=== PATIENT | female | born 1955 | race Caucasian/White ===

== ENCOUNTER 2017-02-16 09:50 | Outpatient (CLI) | payer BC ==
[~2017-02-16] VITALS: Ht 160 cm; Wt 79.4 kg
[2017-02-16] MEDS ORDERED: NS 1,000 ML IV ONE (10:00)
[2017-02-16] MEDS ORDERED: PROPOFOL 200 MG/20 ML VIAL As Ordered ONE (11:36)
[2017-02-16] MEDS ORDERED: LIDOCAINE 2% INJ 100 MG/5 ML SDV (FOR ANES.) As Ordered ONE (11:36)
--- NOTE | 2017-02-16 11:51 | ROOR ---
Patient Name: Lorraine Colmenares Procedure Date: 02/16/2017 11:33 AM Date of : 1955 Age: 61 Room: [facility] Gender: Female Note Status: Finalized Procedure: Upper Endoscopy + Biopsies Indications: Heartburn Providers: Baljeet Bender MD Referring MD: Carla Rojas DO Requesting Provider: Medicines: Monitored Anesthesia Care Complications: No immediate complications. Procedure: Pre-Anesthesia Assessment: - Prior to the procedure, a History and Physical was performed, and patient medications and allergies were reviewed. The risks and benefits of the procedure and the sedation options and risks were discussed with the patient. All questions were answered and informed consent was obtained. Patient identification and proposed procedure were verified [Verifying Personnel] [Verification]. [Mental Status Exam]. [Airway Exam]. [Respiratory Exam]. [CV Exam]. The patient [Abx Prophylaxis Requirement] prophylactic antibiotics [High Risk History Reason] and [High Risk Procedure Reason]. [Anticoagulant Agents] [Days Prior to Procedure]. [ASA Grade]. After reviewing the risks and benefits, the patient was deemed in satisfactory condition to undergo the procedure. [Anesthesia Plan]. Immediately prior to administration of medications, the patient was re-assessed for adequacy to receive sedatives. The heart rate, respiratory rate, oxygen saturations, blood pressure, adequacy of pulmonary ventilation, and response to care were monitored throughout the procedure. The physical status of the patient was re-assessed after the procedure. - The heart rate, respiratory rate, oxygen saturations, blood pressure, adequacy of pulmonary ventilation, and response to care were monitored throughout the procedure. The Endoscope was introduced through the mouth, and advanced to the second part of duodenum. The upper GI endoscopy was accomplished without difficulty. The patient tolerated the procedure well. Findings: The Z-line was regular and was found 38 cm from the incisors. Multiple biopsies were obtained with cold forceps for evaluation to rule out Lackey's Esophagus randomly at the gastroesophageal junction. A medium-sized hiatal hernia was present. No other significant abnormalities were identified in a careful examination of the stomach. The exam of the duodenum was otherwise normal. Impression: - Z-line regular, 38 cm from the incisors. - Medium-sized hiatal hernia. - Multiple biopsies were obtained at the gastroesophageal junction. - The examination was otherwise normal. Recommendation: - Patient has a contact number available for emergencies. The signs and symptoms of potential delayed complications were discussed with the patient. Return to normal activities tomorrow. Written discharge instructions were provided to the patient. - High fiber diet. - Discharge patient to home. - Continue present medications. - Await pathology results. - Telephone GI clinic for pathology results in 1 week. - Return to referring physician. - Check Portal Online for Path Results.([email or web address] - The findings and recommendations were discussed with the patient's family. Baljeet Bender MD Baljeet Bender MD 02/16/2017 11:51:28 AM This report has been signed electronically. Number of Addenda: 0 Note Initiated On: 02/16/2017 11:33 AM Estimated Blood Loss: Estimated blood loss: none.
--- NOTE | 2017-02-16 12:11 | ROOR ---
Patient Name: Lorraine Colmenares Procedure Date: 02/16/2017 11:34 AM Date of : 1955 Age: 61 Room: [facility] Gender: Female Note Status: Finalized Procedure: Total Colonoscopy to Cecum Indications: Colon cancer screening in patient at increased risk: Colorectal cancer in father, Last colonoscopy: 2008 Providers: Baljeet Bender MD Referring MD: Carla Rojas DO Requesting Provider: Medicines: Monitored Anesthesia Care Complications: No immediate complications. Procedure: Pre-Anesthesia Assessment: - The heart rate, respiratory rate, oxygen saturations, blood pressure, adequacy of pulmonary ventilation, and response to care were monitored throughout the procedure. The Colonoscope was introduced through the anus and advanced to the cecum, identified by appendiceal orifice and ileocecal valve. The colonoscopy was performed without difficulty. The patient tolerated the procedure well. The quality of the bowel preparation was excellent. Findings: The perianal and digital rectal examinations were normal. Non-bleeding internal hemorrhoids were found during retroflexion. The hemorrhoids were Grade I (internal hemorrhoids that do not prolapse). Scattered small-mouthed diverticula were found in the recto-sigmoid colon, sigmoid colon and descending colon. The exam was otherwise without abnormality on direct and retroflexion views. Impression: - Non-bleeding internal hemorrhoids. - Diverticulosis in the recto-sigmoid colon, in the sigmoid colon and in the descending colon. - The examination was otherwise normal on direct and retroflexion views. - No specimens collected. - The exam was otherwise normal to the cecum. Recommendation: - Patient has a contact number available for emergencies. The signs and symptoms of potential delayed complications were discussed with the patient. Return to normal activities tomorrow. Written discharge instructions were provided to the patient. - High fiber diet. - Discharge patient to home. - Continue present medications. - Repeat colonoscopy in 5 years for screening purposes. - Return to referring physician. - The findings and recommendations were discussed with the patient's family. Baljeet Bender MD Baljeet Bender MD 02/16/2017 12:11:27 PM This report has been signed electronically. Number of Addenda: 0 Note Initiated On: 02/16/2017 11:34 AM Estimated Blood Loss: Estimated blood loss: none.
[2017-02-16 12:30] VITALS: BP 124/88
== END 2017-02-16 12:45 | disposition home or self-care (01) ==
LOC: M OPP 09:50
PROVIDERS: ATTEND Internal Medicine Gastroenterology
DX: Z12.11 Encounter for screening for malignant neoplasm of colon (principal); K64.0 First degree hemorrhoids; K57.30 Diverticulosis of large intestine without perforation or abscess without bleeding; Z80.0 Family history of malignant neoplasm of digestive organs; R12 Heartburn; K44.9 Diaphragmatic hernia without obstruction or gangrene; R06.83 Snoring; Z88.0 Allergy status to penicillin; Z88.2 Allergy status to sulfonamides; Z91.048 Other nonmedicinal substance allergy status
CPT/HCPCS: 43239; 88305; G0105

== ENCOUNTER → 2017-08-30 | Outpatient (REF) | payer BC ==
[2017-08-30 13:48] LABS: ALKALINE PHOSPHATASE 182 U/L (45-117); GAMMA GLUTAMYLTRANSPEPTIDASE 37 U/L (5-55)
[2017-08-30 14:09] LABS: LABILE ALKPHOS 104 U/L; STABLE ALKPHOS 78 U/L
[2017-08-30 14:10] LABS: % LABILE ALKALINE PHOSPHATASE 57.1 %
== END ==
LOC: M LAB REF 13:11
DX: R79.9 Abnormal finding of blood chemistry, unspecified (principal); R74.8 Abnormal levels of other serum enzymes

== ENCOUNTER → 2018-01-27 | Outpatient (REF) | payer BC ==
[2018-01-27 17:53] LABS: RHEUMATOID FACTOR QUANT < 10.0 IU/ML (<15.0)
[2018-01-30 00:06] LABS: ANTI DOUBLE STRAND-DNA AB <1 IU/mL (0-9); Lyme Disease IgG/IgM Antibodie <0.91 ISR (0.00-0.90); Lyme Disease IgM Ab Quantitati <0.80 index (0.00-0.79); RNP ANTIBODY < 0.2 AI (0.0-0.9); SMITHS ANTIBODY < 0.2 AI (0.0-0.9); SSA SJOGRENS A 0.5 AI (0.0-0.9); SSB SJOGRENS B <0.2 AI (0.0-0.9)
[2018-01-30 00:06] LABS: ANTI-CHROMATIN ANTIBODIES <0.2 AI (0.0-0.9)
== END ==
LOC: M LAB REF 13:33
DX: M25.50 Pain in unspecified joint (principal)

== ENCOUNTER → 2018-10-07 | Outpatient (REF) | payer BC | LOC: M LAB REF 14:29 | PROVIDERS: ATTEND Internal Medicine | DX: R68.83 Chills (without fever) (principal) ==

== ENCOUNTER → 2018-10-07 | Outpatient (REF) | payer BC | LOC: M LAB REF 13:12 | PROVIDERS: ATTEND Internal Medicine | DX: R30.0 Dysuria (principal) ==

== ENCOUNTER → 2018-10-20 | Outpatient (REF) | payer BC ==
[2018-10-20 20:05] LABS: URIC ACID 4.5 MG/DL (2.6-6.0)
== END ==
LOC: M LAB REF 16:55
PROVIDERS: ATTEND Internal Medicine
DX: M17.9 Osteoarthritis of knee, unspecified (principal); R25.1 Tremor, unspecified

== ENCOUNTER → 2018-10-26 | Outpatient (REF) | payer BC ==
[2018-10-26 14:14] LABS: FOLATE 11.9 NG/ML
== END ==
LOC: M LABNEURO 09:05
PROVIDERS: ATTEND Psychiatry & Neurology Neurology
DX: R25.1 Tremor, unspecified (principal)

== ENCOUNTER → 2019-01-06 | Outpatient (REF) | payer BC ==
[2019-01-06 13:07] LABS: ALBUMIN 3.8 GM/DL (3.2-5.2); ALT/SGPT 22 U/L (12-78); BILIRUBIN,TOTAL 0.3 MG/DL (0.2-1.0); BLOOD UREA NITROGEN 15 MG/DL (7-18); CALCIUM LEVEL 9.8 MG/DL (8.8-10.2); CARBON DIOXIDE LEVEL 28 MEQ/L (21-32); CHLORIDE LEVEL 107 MEQ/L (98-107); CREATININE FOR GFR 0.96 MG/DL (0.55-1.30); GLOMERULAR FILTRATION RATE > 60.0 (>45); GLUCOSE, FASTING 102 MG/DL (70-100); POTASSIUM SERUM 4.7 MEQ/L (3.5-5.1); RHEUMATOID FACTOR QUANT < 10.0 IU/ML (<15.0); SODIUM LEVEL 141 MEQ/L (136-145); TOTAL PROTEIN 7.2 GM/DL (6.4-8.2)
[2019-01-11 14:34] LABS: ANCA-ATYPICAL <1:20 titer (Neg:<1:20); ANTI DS-DNA AB <1:10 titer (.); ANTINUCLEAR ANTIBODIES DIRECT Negative (Negative); CYTOPLASMIC NEUTROP AB ANCA-C <1:20 titer (Neg:<1:20); PERINUCLEAR AB ANCA-P <1:20 titer (Neg:<1:20); SJOGREN'S ANTI SS-A 0.3 AI (0.0-0.9); SJOGREN'S ANTI SS-B <0.2 AI (0.0-0.9)
== END ==
LOC: M LABNEURO 11:46
PROVIDERS: ATTEND Psychiatry & Neurology Neurology
DX: R25.1 Tremor, unspecified (principal)

== ENCOUNTER → 2019-06-26 | Outpatient (REF) | payer BC ==
[2019-06-26 18:38] LABS: APPEARANCE, URINE CLEAR (CLEAR); BACTERIA, URINE AUTO NEGATIVE (NEGATIVE); BILIRUBIN, URINE AUTO NEGATIVE (NEGATIVE); BLOOD, URINE BLOOD NEGATIVE (NEGATIVE); COLOR, URINE YELLOW (YELLOW); GLUCOSE, URINE (UA) AUTO NEGATIVE (NEGATIVE); KETONE, URINE AUTO NEGATIVE (NEGATIVE); LEUKOCYTE ESTERASE, URINE AUTO NEGATIVE (NEGATIVE); NITRITE, URINE AUTO NEGATIVE (NEGATIVE); PROTEIN, URINE AUTO NEGATIVE (NEGATIVE); RBC, URINE AUTO 1 /HPF (0-3); SPECIFIC GRAVITY URINE AUTO 1.015 (1.002-1.035); SQUAMOUS EPITHELIAL CELL UR AU 0 /HPF (0-6); UROBILINOGEN, URINE AUTO 0.2 mg/dL (0.0-2.0); WBC, URINE AUTO 2 /HPF (0-3)
== END ==
LOC: M LAB REF 17:13
PROVIDERS: ATTEND Internal Medicine
DX: Z01.818 Encounter for other preprocedural examination (principal); M17.0 Bilateral primary osteoarthritis of knee

== ENCOUNTER → 2020-01-11 | Outpatient (REF) | payer BC | LOC: M LAB REF 11:07 | PROVIDERS: ATTEND Internal Medicine | DX: I44.7 Left bundle-branch block, unspecified (principal) ==

== ENCOUNTER → 2020-10-01 | Outpatient (REF) | payer BC | LOC: M LAB REF 12:08 | PROVIDERS: ATTEND Internal Medicine | DX: R30.0 Dysuria (principal) ==

== ENCOUNTER → 2021-02-21 | Outpatient (CLI) | payer BC ==
--- NOTE | 2021-02-21 10:03 | REP ---
INDICATION: R14.0 ABD BLOATING/R19.4 BOWEL HABIT CHANGES. COMPARISON: None. TECHNIQUE: Multiple ultrasonographic images of the pelvis including transabdominal, endovaginal and Doppler ultrasound. FINDINGS: The patient has history of partial hysterectomy. The bladder is adequately distended. There is no identifiable uterus. Right ovary: The right ovary measures 2.1 x 1.4 x 1.9 cm and is normal size. There is no dominant mass or cyst. There is vascular flow with the Doppler resistive index in the parenchymal arteries measuring 0.62. Left ovary: The left ovary could not be identified on either transabdominal or endovaginal ultrasound. There is no free fluid in the cul-de-sac. IMPRESSION: Technically difficult examination because of patient body habitus. History of partial hysterectomy. The uterus is cannot be identified. The left ovary cannot be identified. The right ovary is unremarkable. There is no free fluid. <Electronically signed by Sher Kennedy > 02/21/21 1000
--- NOTE | 2021-02-21 10:33 | REPMRS ---
Patient History The patient states she had a clinical breast exam in November 2020. Patient is postmenopausal. Family history of colorectal cancer at age 50 or over and pancreatic cancer at age 50 or over in father. Patient states no breast complaints today. Patient has signed MRS History Sheet. Digital Woman Screen Mammo: February 21, 2021 - Exam #: [id number] Bilateral CC and MLO view(s) were taken. Technologist: Belinda Edwards, Technologist Prior study comparison: September 03, 2017, bilateral digital mammo screening bilat, performed at [facility]. January 14, 2015, bilateral digital mammo screening bilat, performed at [facility]. FINDINGS: The breast tissue is almost entirely fat. The Volpara volumetric breast density category is: A. There has been no change in the appearance of the mammogram from the prior studies. There is no interval development of dominant mass, architectural distortion, or grouped microcalcification typical of malignancy. 3-D tomosynthesis shows no additional findings. Assessment: BI-RADS/ACR category 1 mammogram. Negative Mammogram. Recommendation Routine screening mammogram of both breasts in 1 year (for women over age 40). This patient's [facility] Lifetime Breast Cancer RIsk is estimated at 4.9 %. This mammogram was interpreted with the aid of an FDA-approved computer-aided dectection system. Electronically Signed By: Myron Fofana MD 02/21/21 1033
--- NOTE | 2021-02-21 12:54 | DEXAMM ---
INDICATION: Z13.820 SCR FOR OSTEOPOROSIS. COMPARISON: Comparison study October 07, 2009.. TECHNIQUE: Bone density was measured using dual-energy x-ray absorptionmetry (DEXA). The right hip study could not be acquired because of patient's immobility and difficulty with positioning. FINDINGS: AP SPINE L1-L4 BMD 1.087 g/cm2 Young Adult T-Score -0.9 Age Matched Z-Score 0.7. LT FEMUR, TOTAL BMD 0.846 g/cm2 Young Adult T-Score is -1.3 Age Matched Z-Score -0.1. LT NECK BMD 0.894 g/cm2 Young Adult T-Score -1.0 Age Matched Z-Score 0.5. IMPRESSION: There is normal bone density of the spine. There is low bone density of the left hip. The density of the spine has decreased 15.9% since the initial exam on October 07, 2009. The density of the left hip has decreased 19.9% since initial exam on October 07, 2009. FOLLOW-UP: Recommendation for the next bone density exam: 2 years. <Electronically signed by Myron Fofana > 02/21/21 1872
== END ==
LOC: M WHC 08:45
PROVIDERS: ATTEND Advanced Practice Midwife
DX: Z12.31 Encounter for screening mammogram for malignant neoplasm of breast (principal); Z13.820 Encounter for screening for osteoporosis; R93.9 Diagnostic imaging inconclusive due to excess body fat of patient; R14.0 Abdominal distension (gaseous); R19.4 Change in bowel habit; Z90.711 Acquired absence of uterus with remaining cervical stump; Z78.0 Asymptomatic menopausal state

== ENCOUNTER → 2021-02-21 | Outpatient (REF) | payer BC | LOC: M SFHCWAGY 18:12 | PROVIDERS: ATTEND Advanced Practice Midwife | DX: L98.9 Disorder of the skin and subcutaneous tissue, unspecified (principal); N90.89 Other specified noninflammatory disorders of vulva and perineum ==

== ENCOUNTER → 2022-04-03 | Outpatient (CLI) | payer MEDICARE | LOC: M WHC 08:45 | PROVIDERS: ATTEND Advanced Practice Midwife | DX: Z12.31 Encounter for screening mammogram for malignant neoplasm of breast (principal) ==

== ENCOUNTER 2022-09-16 08:18 | Day surgery (SDC) | payer MEDICARE ==
[~2022-09-16] VITALS: Ht 160 cm; Wt 74.8 kg
[~2022-09-16 08:18] MED LIST: NS 1,000 ML IV ONE
[2022-09-16] MEDS ORDERED: propofoL 200 MG/20 ML VIAL As Ordered ONE (10:07)
[2022-09-16] MEDS ORDERED: LIDOCAINE 2% 100MG/5ML SDV (FOR ANES.) As Ordered ONE (10:07)
[2022-09-16] MEDS ORDERED: fentaNYL 100 MCG/2 ML INJECTION As Ordered ONE (10:08)
[2022-09-16 10:57] VITALS: BP 129/63
== END 2022-09-16 11:20 | disposition home or self-care (01) ==
LOC: M OPP 08:18
PROVIDERS: ATTEND Internal Medicine Gastroenterology
DX: Z80.0 Family history of malignant neoplasm of digestive organs (principal); K63.5 Polyp of colon; K64.0 First degree hemorrhoids; K44.9 Diaphragmatic hernia without obstruction or gangrene; K22.2 Esophageal obstruction; Z91.040 Latex allergy status; Z91.048 Other nonmedicinal substance allergy status; Z88.2 Allergy status to sulfonamides; Z88.0 Allergy status to penicillin
CPT/HCPCS: 43239; 43249; 45380; 88305; J3010

== ENCOUNTER → 2022-12-09 | Outpatient (REF) | payer MEDICARE ==
[2022-12-10 13:19] LABS: % LABILE ALKALINE PHOSPHATASE 58.8 %
== END ==
LOC: M LAB REF 16:09
PROVIDERS: ATTEND Internal Medicine
DX: E78.5 Hyperlipidemia, unspecified (principal); R74.01 Elevation of levels of liver transaminase levels

== ENCOUNTER → 2023-06-09 | Outpatient (CLI) | payer MEDICARE | LOC: M WHC 09:30 | PROVIDERS: ATTEND Advanced Practice Midwife | DX: Z12.31 Encounter for screening mammogram for malignant neoplasm of breast (principal) ==

== ENCOUNTER → 2023-06-16 | Outpatient (REF) | payer OTHER | LOC: M PLALAB 13:27 | PROVIDERS: ATTEND Advanced Practice Midwife | DX: L98.9 Disorder of the skin and subcutaneous tissue, unspecified (principal); N89.8 Other specified noninflammatory disorders of vagina ==

== ENCOUNTER → 2023-12-08 | Outpatient (REF) | payer MEDICARE ==
[2023-12-10 14:52] LABS: % LABILE ALKALINE PHOSPHATASE 58.2 %
== END ==
LOC: M LAB REF 13:16
PROVIDERS: ATTEND Internal Medicine
DX: R74.01 Elevation of levels of liver transaminase levels (principal)

== ENCOUNTER → 2024-01-10 | Outpatient (CLI) | payer MEDICARE | LOC: M WHC 10:01 | PROVIDERS: ATTEND Internal Medicine | DX: K76.0 Fatty (change of) liver, not elsewhere classified (principal); R74.8 Abnormal levels of other serum enzymes ==

== ENCOUNTER → 2025-01-31 | Outpatient (REF) | payer MEDICARE, OTHER | LOC: M PLALAB 16:28 | PROVIDERS: ATTEND Advanced Practice Midwife | DX: N90.89 Other specified noninflammatory disorders of vulva and perineum (principal) ==

== ENCOUNTER → 2025-01-31 | Outpatient (CLI) | payer MEDICARE | LOC: M WHC 12:58 | PROVIDERS: ATTEND Advanced Practice Midwife | DX: Z13.820 Encounter for screening for osteoporosis (principal); M85.851 Other specified disorders of bone density and structure, right thigh; M85.852 Other specified disorders of bone density and structure, left thigh; M85.88 Other specified disorders of bone density and structure, other site; Z12.31 Encounter for screening mammogram for malignant neoplasm of breast; R92.323 Mammographic fibroglandular density, bilateral breasts ==

== ENCOUNTER → 2025-01-31 | Outpatient (CLI) | payer MEDICARE | LOC: M WHC 12:59 | PROVIDERS: ATTEND Advanced Practice Midwife | DX: Z12.31 Encounter for screening mammogram for malignant neoplasm of breast (principal); R92.323 Mammographic fibroglandular density, bilateral breasts ==